=== PATIENT | male | born 1995 | race Two or more races ===

== ENCOUNTER 2022-10-23 09:20 | Emergency (ER) | payer SELFPAY ==
[~2022-10-23] VITALS: Ht 175.3 cm; Wt 146.4 kg
[2022-10-23 09:57] VITALS: BP 138/83
[2022-10-23] MEDS ORDERED: LORA-483 GT (14:01)
[2022-10-23] MEDS ORDERED: ACET-1158 PO (14:01)
[2022-10-23] MEDS ORDERED: TAMIFLU PO (14:01)
== END 2022-10-23 14:10 | disposition home or self-care (01) ==
LOC: ER 09:20
DX: J06.9 Acute upper respiratory infection, unspecified (principal); B97.89 Other viral agents as the cause of diseases classified elsewhere; Z20.822 Contact with and (suspected) exposure to COVID-19
CPT/HCPCS: 36415; 87426; 87804